=== PATIENT | male | born 1965 | race Caucasian/White ===

== ENCOUNTER 2016-05-01 13:10 | Emergency (ER) | payer OTHER ==
[~2016-05-01] VITALS: Ht 172.7 cm; Wt 95.0 kg
[2016-05-01 13:19] VITALS: Ht 172.7 cm; Wt 95.0 kg
[2016-05-01] MEDS ORDERED: LIDOCAINE 1%/EPI (MDV) 20 ML INJ SC ONE (16:00)
--- NOTE | 2016-05-01 16:53 | RADRPT ---
PROCEDURE: CT brain without contrast CLINICAL INDICATION: Post traumatic headaches. Laceration. TECHNIQUE: A CT of the brain was performed utilizing axial sections from the skull base through th e vertex without contrast. Sagittal and coronal images were also reformatted. The exam CTDIvol = 44. 40 mGy and DLP = 720.23 mGy-cm. COMPARISON: None available FINDINGS: No acute intracranial hemorrhage is identified. There is no mass effect or midline shift. No extra -axial fluid collection is seen. The ventricles and sulci are within normal limits for size and con figuration. The density of the brain is within normal limits. Ham-white differentiation is preser mariely. Subcutaneous gas at the right frontal convexity corresponds with a scalp laceration without retained radiopaque foreign body. The osseous structures are unremarkable. The mastoid air cells and visua lized paranasal sinuses are clear. RPTAT:HJJR IMPRESSION: Right frontal convexity scalp laceration without associated fracture or acute intracranial abnormali ty. Normal noncontrast head CT for the patient's age. Physician Halle Date Time Electronically viewed and signed by Physician Halle on 05/01/2016 16:53 /
[2016-05-01] MEDS ORDERED: NAPR-688 PO (17:57)
[2016-05-01] MEDS ORDERED: HYDR-906 PO (17:57)
--- NOTE | 2016-05-01 18:13 | ERD ---
ER Documentation Chief Complaint Date/Time DATE: 05/01/16 TIME: 17:58 Chief Complaint lac on R top head today denies LOC HPI This 51-year-old male presents with a laceration to his head from a a metal airplane part while he was at work. He denies any loss of consciousness. The bleeding was mostly stopped with pressure but continues to bleed slightly. He has no other injuries. States that he is otherwise healthy. ROS All systems reviewed and are negative except as per history of present illness. Medications Home Meds Active Scripts Hydrocodone/Acetaminophen ([place] 5-325 Tablet) 1 Each Tablet, 1 EACH PO ONCE, # 7 TAB Prov:MAKENNA DAVIS DO 05/01/16 Naproxen* (Naproxen*) 500 Mg Tablet, 500 MG PO BID for PAIN, #20 TAB Prov:MAKENNA DAVIS DO 05/01/16 Allergies Allergies: Coded Allergies: No Known Allergy (Unverified , 05/01/16) PMhx/Soc Medical and Surgical Hx: pt denies Medical Hx History of Surgery: Yes (SHOULDER SX) Anesthesia Reaction: No Hx Neurological Disorder: No Hx Respiratory Disorders: No Hx Cardiac Disorders: No Hx Psychiatric Problems: No Hx Miscellaneous Medical Probl: No Hx Alcohol Use: No Hx Substance Use: No Hx Tobacco Use: No Smoking Status: Never smoker Physical Exam Vitals Vital Signs Date Time Temp Pulse Resp B/P Pulse Ox O2 Delivery O2 Flow Rate FiO2 05/01/16 13:19 98.5 84 18 143/86 96 Physical Exam Const: [] No distress Head: V-shaped scalp laceration to the anterior parietal scalp roughly centrally located in the head, laceration is approximately 7 cm on one side by 5 cm on the other side of the feet. Mild active bleeding Eyes: Normal Conjunctiva, EOMI, PERRLA ENT: Normal External Ears, Nose and Mouth. Neck: Full range of motion..~ No meningismus. Neur: Awake and alert and oriented 3, cranial nerves II through XII intact, cerebellar normal, gait normal Results 24 hrs Current Medications Medications (Trade) Dose Ordered Sig/Kelvin Route PRN Reason Start Time Stop Time Status Last Admin Dose Admin Lidocaine/ Epinephrine (Xylocaine 1%/ Epi (Mdv) 20 ml) 20 ml ONCE ONCE SC 05/01/16 16:00 05/01/16 16:01 DC Procedures/MDM Scalp laceration with no obvious signs of skull fracture or intracranial hemorrhage. In the discharge instructions for staple removal in 10 days. Patient has no neurological deficits otherwise is completely intact. Primary care follow-up in 2-3 days for wound check. Discharging with naproxen and a few [place] for pain. Laceration repair note, they parietal scalp laceration, V-shaped, total of 12 cm linearly: Lacerations mildly complicated by active bleeding. Laceration was copiously irrigated with normal saline. Anesthetized with 6 mL of lidocaine with epinephrine. [place] were used for a total of 12 get which led to good closure, complete hemostasis. Patient tied the procedure with no complications. Departure Diagnosis: Primary Impression: Head injury Additional Impression: Scalp laceration Condition: Stable Patient Instructions: HEAD INJURY, No Wake-Up (Adult), Laceration, Scalp Additional Instructions: Call your primary care doctor TOMORROW for an appointment during the next 2-3 days. Return to ER in 10 days for staple removal. See the doctor sooner or return here if your condition worsens before your appointment time. MAKENNA DAVIS DO May 01, 2016 18:11
== END 2016-05-01 18:22 | disposition home or self-care (01) ==
LOC: FTE 13:10
DX: S01.01XA Laceration without foreign body of scalp, initial encounter (principal); W22.8XXA Striking against or struck by other objects, initial encounter; Y92.89 Other specified places as the place of occurrence of the external cause
CPT/HCPCS: 70450